=== PATIENT | male | born 1985 | race Caucasian/White ===

== ENCOUNTER 2016-10-28 18:25 | Inpatient (IN) | payer SELFPAY ==
[~2016-10-28] VITALS: Ht 180.3 cm; Wt 60.0 kg
[2016-10-28] MEDS: METRONIDAZOLE PMX 500MG/100ML 100 ML IV SCH (01:00)
[2016-10-28] MEDS ORDERED: FAMOTIDINE 20 MG/2 ML IVP ONE (19:00)
[2016-10-28] MEDS ORDERED: DIPHENHYDRAMINE 50 MG/ML, 1ML IVPush ONE (19:00)
[2016-10-28] MEDS ORDERED: SODIUM CHLORIDE 0.9% 1,000ML IVBOLUS ONE (19:00)
[2016-10-28] MEDS ORDERED: METOCLOPRAMIDE 5 MG/ML, 2ML IVPush ONE (19:00)
[2016-10-28] MEDS ORDERED: SODIUM CHLORIDE FLUSH 10ML SYR IVF ONE (19:00)
[2016-10-28] MEDS ORDERED: FAMOTIDINE 20 MG/2 ML ONE (19:16)
[2016-10-28] MEDS ORDERED: DIPHENHYDRAMINE 50 MG/ML, 1ML ONE (19:16)
[2016-10-28] MEDS ORDERED: METOCLOPRAMIDE 5 MG/ML, 2ML ONE (19:16)
[2016-10-28] MEDS ORDERED: MORPHINE SULFATE 4 MG/ML, 1ML IVPush PRN (19:30)
[2016-10-28 19:40] LABS: ASPARTATE AMINO TRANSFERASE 17 U/L (15-37); BLOOD UREA NITROGEN 18 mg/dL (7-18)
[2016-10-28] MEDS ORDERED: MORPHINE SULFATE 4 MG/ML, 1ML ONE ×2 (19:59→22:08)
[2016-10-28 20:20] LABS: DIFF TOTAL CELLS COUNTED 100 CELL DIFF
[2016-10-28 20:29] LABS: VERIFY COUNTS? YES
[2016-10-28] MEDS ORDERED: ACETAMINOPHEN 325 MG TABLET ONE (20:29)
[2016-10-28] MEDS ORDERED: ACETAMINOPHEN 325 MG TABLET PO ONE (20:30)
[2016-10-28] MEDS ORDERED: morphine SULFATE 10 MG/ML, 1ML IVPush ONE (22:30)
[2016-10-28] MEDS ORDERED: SODIUM CHLORIDE 0.9% 1,000 ML IV ONE (22:30)
[2016-10-28] MEDS ORDERED: HYDROcodone/APAP 5/325 TABLET PO PRN (23:00)
[2016-10-28] MEDS ORDERED: CEFTRIAXONE 1,000 MG in SODIUM CHLORIDE 0.9% 50 ML IV SCH (23:00)
[2016-10-28] MEDS ORDERED: PHARMACY MAY ADJ FOR RENAL FX MC PRN (23:00)
[2016-10-28] MEDS ORDERED: ONDANSETRON ODT 4 MG PO PRN (23:00)
[2016-10-28] MEDS ORDERED: ACETAMINOPHEN 325 MG TABLET PO PRN (23:00)
[2016-10-28 23:03] VITALS: BP 102/65
[2016-10-28] MEDS: SODIUM CHLORIDE 0.9% 1,000 ML IV SCH (23:12)
[2016-10-28] MEDS: ENOXAPARIN 40 MG/0.4 ML SQ SCH (23:35)
[2016-10-29 00:14] VITALS: BP 102/67
[2016-10-29] MEDS: METRONIDAZOLE PMX 500MG/100ML 100 ML IV SCH ×3 (00:57→19:51)
[2016-10-29 03:31] VITALS: BP 105/61
[2016-10-29] MEDS: morphine SULFATE 10 MG/ML, 1ML IVPush PRN ×5 (05:33→23:34)
[2016-10-29] MEDS: ONDANSETRON 2MG/ML, 2ML IVPush PRN ×3 (05:34→23:08)
[2016-10-29] MEDS: SODIUM CHLORIDE 0.9% 1,000 ML IV SCH ×3 (05:36→18:49)
[2016-10-29 05:43] LABS: ASPARTATE AMINO TRANSFERASE 16 U/L (15-37); BLOOD UREA NITROGEN 14 mg/dL (7-18)
[2016-10-29] MEDS: METOCLOPRAMIDE 5 MG/ML, 2ML IVPush PRN ×2 (08:41→19:51)
[2016-10-29 13:55] VITALS: BP 109/68
[2016-10-29] MEDS: LORazepam 2 MG/ML, 1ML IVPush PRN ×2 (16:08→23:56)
[2016-10-29 21:56] VITALS: BP 112/72
[2016-10-29] MEDS: ENOXAPARIN 40 MG/0.4 ML SQ SCH (23:08)
[2016-10-29] MEDS: CEFTRIAXONE PMX 1GM/50ML 50 ML IV SCH (23:10)
[2016-10-30 00:51] VITALS: BP 116/71
[2016-10-30] MEDS: METOCLOPRAMIDE 5 MG/ML, 2ML IVPush PRN ×4 (01:51→21:40)
[2016-10-30] MEDS: morphine SULFATE 10 MG/ML, 1ML IVPush PRN ×4 (03:54→21:40)
[2016-10-30] MEDS: METRONIDAZOLE PMX 500MG/100ML 100 ML IV SCH ×3 (03:54→19:59)
[2016-10-30] MEDS: ONDANSETRON 2MG/ML, 2ML IVPush PRN ×3 (05:10→19:59)
[2016-10-30 06:14] LABS: BLOOD UREA NITROGEN 10 mg/dL (7-18)
[2016-10-30 07:52] VITALS: BP 105/61
[2016-10-30] MEDS ORDERED: POTASSIUM CHLORIDE 40 MEQ in SODIUM CHLORIDE 0.9% 500 ML IV ONE (08:00)
[2016-10-30] MEDS ORDERED: MORPHINE SULFATE 4 MG/ML, 1ML ONE (08:31)
[2016-10-30] MEDS: LORazepam 2 MG/ML, 1ML IVPush PRN (11:57)
[2016-10-30 12:49] VITALS: BP 94/55
[2016-10-30] MEDS: FAMOTIDINE 20 MG/2 ML IVPush SCH ×2 (17:27→19:59)
[2016-10-30] MEDS: SODIUM CHLORIDE 0.9% 1,000 ML IV SCH (17:33)
[2016-10-30 20:25] VITALS: BP 138/78
[2016-10-30] MEDS: CEFTRIAXONE PMX 1GM/50ML 50 ML IV SCH (23:06)
[2016-10-31 00:55] VITALS: BP 121/86
[2016-10-31] MEDS: ONDANSETRON 2MG/ML, 2ML IVPush PRN ×3 (01:36→16:41)
[2016-10-31] MEDS: LORazepam 2 MG/ML, 1ML IVPush PRN ×3 (01:36→16:41)
[2016-10-31] MEDS: METOCLOPRAMIDE 5 MG/ML, 2ML IVPush PRN ×2 (03:53→18:27)
[2016-10-31] MEDS: METRONIDAZOLE PMX 500MG/100ML 100 ML IV SCH ×3 (03:53→22:35)
[2016-10-31] MEDS: SODIUM CHLORIDE 0.9% 1,000 ML IV SCH ×2 (05:10→13:37)
[2016-10-31] MEDS: morphine SULFATE 10 MG/ML, 1ML IVPush PRN ×2 (05:16→18:27)
[2016-10-31 05:59] LABS: BLOOD UREA NITROGEN 8 mg/dL (7-18)
[2016-10-31] MEDS: FAMOTIDINE 20 MG/2 ML IVPush SCH (08:04)
[2016-10-31] MEDS: ENOXAPARIN 40 MG/0.4 ML SQ SCH (08:04)
[2016-10-31 08:06] VITALS: BP 128/76
[2016-10-31] MEDS ORDERED: MAGNESIUM SULFATE PMX 2GM/50ML 50 ML IV ONE (08:30)
[2016-10-31] MEDS ORDERED: POTASSIUM PHOSPHATE 22 MEQ in SODIUM CHLORIDE 0.9% 500 ML IV ONE (08:30)
[2016-10-31] MEDS ORDERED: POTASSIUM CHLORIDE 40 MEQ in SODIUM CHLORIDE 0.9% 500 ML IV ONE (11:30)
[2016-10-31] MEDS: PROMETHAZINE 25 MG/ML, 1ML IM PRN (11:32)
[2016-10-31 14:37] VITALS: BP 127/80
[2016-10-31 20:54] VITALS: BP 104/62
[2016-11-01] MEDS: morphine SULFATE 10 MG/ML, 1ML IVPush PRN ×5 (00:15→19:54)
[2016-11-01] MEDS: PROMETHAZINE 25 MG/ML, 1ML IM PRN ×4 (00:16→21:02)
[2016-11-01] MEDS: CEFTRIAXONE PMX 1GM/50ML 50 ML IV SCH (01:21)
[2016-11-01] MEDS: SODIUM CHLORIDE 0.9% 1,000 ML IV SCH ×3 (01:23→15:49)
[2016-11-01] MEDS: FAMOTIDINE 20 MG/2 ML IVPush SCH ×3 (01:25→21:02)
[2016-11-01 03:07] VITALS: BP 125/85
[2016-11-01 05:52] LABS: BLOOD UREA NITROGEN 7 mg/dL (7-18)
[2016-11-01 06:57] VITALS: BP 105/70
[2016-11-01] MEDS: METRONIDAZOLE PMX 500MG/100ML 100 ML IV SCH ×2 (07:34→15:48)
[2016-11-01] MEDS ORDERED: POTASSIUM CHLORIDE 40 MEQ in SODIUM CHLORIDE 0.9% 500 ML IV ONE (08:30)
[2016-11-01] MEDS: ENOXAPARIN 40 MG/0.4 ML SQ SCH (08:59)
[2016-11-01] MEDS: LORazepam 2 MG/ML, 1ML IVPush PRN ×2 (11:23→17:39)
[2016-11-01 13:33] VITALS: BP 120/82
[2016-11-01] MEDS ORDERED: ZOLPIDEM 5MG TABLET PO PRN (15:30)
[2016-11-01] MEDS: LACTOBACILLUS CHEW TABLET PO SCH ×2 (17:34→21:02)
[2016-11-01 19:20] VITALS: BP 124/82
[2016-11-02] MEDS: morphine SULFATE 10 MG/ML, 1ML IVPush PRN ×5 (00:31→20:10)
[2016-11-02] MEDS: CEFTRIAXONE PMX 1GM/50ML 50 ML IV SCH (00:34)
[2016-11-02] MEDS: SODIUM CHLORIDE 0.9% 1,000 ML IV SCH ×2 (00:34→09:09)
[2016-11-02 01:17] VITALS: BP 123/82
[2016-11-02] MEDS: METRONIDAZOLE PMX 500MG/100ML 100 ML IV SCH ×2 (01:30→09:08)
[2016-11-02] MEDS: LORazepam 2 MG/ML, 1ML IVPush PRN ×2 (02:26→17:01)
[2016-11-02] MEDS: PROMETHAZINE 25 MG/ML, 1ML IM PRN ×4 (02:27→20:13)
[2016-11-02 04:51] LABS: BLOOD UREA NITROGEN 5 mg/dL (7-18)
[2016-11-02] MEDS: NICOTINE 7 MG/24 HR PATCH.TD24 TD SCH (05:54)
[2016-11-02 07:27] VITALS: BP 132/80
[2016-11-02] MEDS: FAMOTIDINE 20 MG/2 ML IVPush SCH ×2 (09:07→20:59)
[2016-11-02] MEDS: LACTOBACILLUS CHEW TABLET PO SCH ×3 (09:07→20:59)
[2016-11-02] MEDS: POTASSIUM CHLORIDE 20 MEQ TAB.ER.PRT PO SCH ×2 (09:07→16:56)
[2016-11-02] MEDS: ENOXAPARIN 40 MG/0.4 ML SQ SCH (09:08)
[2016-11-02] MEDS ORDERED: LORazepam 1MG TABLET PO PRN (12:30)
[2016-11-02 13:26] VITALS: BP 112/74
[2016-11-02] MEDS: metroNIDAZOLE 500 MG TABLET PO SCH ×2 (13:45→21:42)
[2016-11-02 19:08] VITALS: BP 127/83
[2016-11-02] MEDS: CEFDINIR 300 MG CAPSULE PO SCH (20:58)
[2016-11-03 00:33] VITALS: BP 116/76
[2016-11-03] MEDS: morphine SULFATE 10 MG/ML, 1ML IVPush PRN (03:31)
[2016-11-03] MEDS: metroNIDAZOLE 500 MG TABLET PO SCH ×2 (05:02→13:14)
[2016-11-03] MEDS: NICOTINE 7 MG/24 HR PATCH.TD24 TD SCH (05:04)
[2016-11-03 06:07] LABS: BLOOD UREA NITROGEN 5 mg/dL (7-18)
[2016-11-03] MEDS: ENOXAPARIN 40 MG/0.4 ML SQ SCH (09:00)
[2016-11-03] MEDS: FAMOTIDINE 20 MG/2 ML IVPush SCH (09:16)
[2016-11-03] MEDS: CEFDINIR 300 MG CAPSULE PO SCH (09:16)
[2016-11-03] MEDS: LACTOBACILLUS CHEW TABLET PO SCH (09:17)
[2016-11-03] MEDS: POTASSIUM CHLORIDE 20 MEQ TAB.ER.PRT PO SCH (09:17)
[2016-11-03] MEDS ORDERED: CEFD300C37 PO (09:28)
[2016-11-03] MEDS ORDERED: METR500T PO (09:28)
[2016-11-03] MEDS ORDERED: ACID1TAB7 PO (09:28)
[2016-11-03] MEDS ORDERED: ONDA4TAB13 PO (09:28)
[2016-11-03 09:40] VITALS: BP 109/73
[2016-11-04] MEDS ORDERED: LORA-445 PO (23:20)
== END 2016-11-03 14:50 | disposition home or self-care (01) | DRG 391 ==
LOC: ED 21:30 → SUATTDRO 22:30 → EDIP 22:35 → 3NE 23:00 → DCLOUNGE 11-03 14:33
PROVIDERS: ADMIT Internal Medicine; ATTEND Internal Medicine
DX: K52.9 Noninfective gastroenteritis and colitis, unspecified (principal); N17.0 Acute kidney failure with tubular necrosis; E87.2 Acidosis; F41.9 Anxiety disorder, unspecified; G89.29 Other chronic pain; D64.9 Anemia, unspecified; E83.42 Hypomagnesemia; E87.6 Hypokalemia; E83.39 Other disorders of phosphorus metabolism; G43.A0 Cyclical vomiting, in migraine, not intractable; E86.0 Dehydration; E86.1 Hypovolemia; G47.00 Insomnia, unspecified; F12.90 Cannabis use, unspecified, uncomplicated
CPT/HCPCS: 36415; 74176; 80048; 80053; 81001; 83605; 83690; 83735; 84100; 85025; 87040; 87046; 87324; 89055; 96361; 96374; 96375; 96376; J0696; J1650; J2405; J2550; J3480; J1200; J2060; J2270; J2765; J3475; J7030; J7040; S0028

== ENCOUNTER 2016-11-04 20:37 | Inpatient (IN) | payer MEDICAID ==
[~2016-11-04] VITALS: Ht 180.3 cm; Wt 55.9 kg
[~2016-11-04 20:37] MED LIST: ACID1TAB7 PO; CEFD300C37 PO; METR500T PO; ONDA4TAB13 PO
[2016-11-04] MEDS ORDERED: MORPHINE SULFATE 4 MG/ML, 1ML ONE (20:52)
[2016-11-04] MEDS ORDERED: ONDANSETRON 2MG/ML, 2ML ONE (20:52)
[2016-11-04] MEDS ORDERED: FAMOTIDINE 20 MG/2 ML ONE (20:54)
[2016-11-04] MEDS ORDERED: ONDANSETRON 2MG/ML, 2ML IVPush ONE (21:00)
[2016-11-04] MEDS ORDERED: MORPHINE SULFATE 4 MG/ML, 1ML IVPush PRN (21:00)
[2016-11-04] MEDS ORDERED: SODIUM CHLORIDE 0.9% 1,000ML IVBOLUS ONE ×2 (21:00→22:00)
[2016-11-04] MEDS ORDERED: SODIUM CHLORIDE FLUSH 10ML SYR IVF ONE (21:00)
[2016-11-04] MEDS ORDERED: FAMOTIDINE 20 MG/2 ML IVP ONE (21:00)
[2016-11-04 21:30] LABS: ASPARTATE AMINO TRANSFERASE 56 U/L (15-37); BLOOD UREA NITROGEN 12 mg/dL (7-18)
[2016-11-04] MEDS ORDERED: ZIPRASIDONE 20 MG INJ IM ONE ×2 (21:43→22:00)
[2016-11-04] MEDS ORDERED: PROMETHAZINE 25 MG/ML, 1ML IM ONE (22:00)
[2016-11-04] MEDS ORDERED: PROMETHAZINE 25 MG/ML, 1ML ONE (22:15)
[2016-11-04] MEDS ORDERED: LORA-445 PO (23:20)
[2016-11-05] MEDS ORDERED: SODIUM CHLORIDE 0.9% 1,000 ML IV ONE (00:07)
[2016-11-05] MEDS ORDERED: MORPHINE SULFATE 4 MG/ML, 1ML IVPush PRN (00:30)
[2016-11-05] MEDS ORDERED: ONDANSETRON 2MG/ML, 2ML IVPush PRN (00:30)
[2016-11-05] MEDS ORDERED: ONDANSETRON ODT 4 MG PO PRN (00:30)
[2016-11-05] MEDS: SODIUM CHLORIDE 0.9% 1,000 ML IV SCH ×3 (01:02→16:09)
[2016-11-05 01:06] VITALS: BP 132/87
[2016-11-05] MEDS: metroNIDAZOLE 500 MG TABLET PO SCH ×3 (01:14→16:10)
[2016-11-05] MEDS: ENOXAPARIN 40 MG/0.4 ML SQ SCH (01:14)
[2016-11-05] MEDS: PROMETHAZINE 25 MG/ML, 1ML IM PRN ×5 (01:15→23:59)
[2016-11-05 01:24] VITALS: BP 132/87
[2016-11-05] MEDS: LORazepam 2 MG/ML, 1ML IVPush PRN ×4 (04:13→19:20)
[2016-11-05 04:51] VITALS: BP 133/73
[2016-11-05] MEDS: PANTOPRAZOLE 40 MG IV IVPush SCH (07:27)
[2016-11-05 07:41] VITALS: BP 103/56
[2016-11-05] MEDS: ONDANSETRON 2MG/ML, 2ML IVPush PRN ×2 (08:18→20:45)
[2016-11-05] MEDS: LACTOBACILLUS CHEW TABLET PO SCH ×3 (09:54→21:28)
[2016-11-05] MEDS: CEFDINIR 300 MG CAPSULE PO SCH ×2 (09:54→21:00)
[2016-11-05 14:38] VITALS: BP 129/81
[2016-11-05 18:42] VITALS: BP 108/68
[2016-11-05] MEDS ORDERED: morphine SULFATE 10 MG/ML, 1ML IVPush PRN (21:30)
[2016-11-06] MEDS: SODIUM CHLORIDE 0.9% 1,000 ML IV SCH ×3 (00:27→20:49)
[2016-11-06] MEDS: morphine SULFATE 10 MG/ML, 1ML IVPush PRN ×3 (00:27→16:03)
[2016-11-06] MEDS: ENOXAPARIN 40 MG/0.4 ML SQ SCH (00:30)
[2016-11-06 01:51] VITALS: BP 181/71
[2016-11-06] MEDS: LORazepam 2 MG/ML, 1ML IVPush PRN ×3 (02:20→22:47)
[2016-11-06 05:35] LABS: BLOOD UREA NITROGEN 6 mg/dL (7-18)
[2016-11-06] MEDS: PANTOPRAZOLE 40 MG IV IVPush SCH (08:25)
[2016-11-06] MEDS: LACTOBACILLUS CHEW TABLET PO SCH ×3 (08:25→22:46)
[2016-11-06 08:31] VITALS: BP 181/71
[2016-11-06 08:52] LABS: DIFF TOTAL CELLS COUNTED 100 CELL DIFF
[2016-11-06 08:54] LABS: VERIFY COUNTS? YES
[2016-11-06] MEDS ORDERED: POTASSIUM CHLORIDE 40 MEQ in SODIUM CHLORIDE 0.9% 500 ML IV ONE (12:30)
[2016-11-06 14:30] VITALS: BP 140/92
[2016-11-06] MEDS ORDERED: MORPHINE SULFATE 4 MG/ML, 1ML ONE (15:58)
[2016-11-06] MEDS: ONDANSETRON 2MG/ML, 2ML IVPush PRN (16:03)
[2016-11-06] MEDS: PROMETHAZINE 25 MG/ML, 1ML IM PRN ×2 (18:15→22:46)
[2016-11-06] MEDS: METOPROLOL TARTRATE 25 MG TABLET PO SCH (18:17)
[2016-11-06 18:58] VITALS: BP 112/75
[2016-11-06] MEDS: MORPHINE SULFATE 4 MG/ML, 1ML IVPush PRN (20:49)
[2016-11-07] MEDS: ENOXAPARIN 40 MG/0.4 ML SQ SCH ×2 (00:30→23:55)
[2016-11-07] MEDS: MORPHINE SULFATE 4 MG/ML, 1ML IVPush PRN ×5 (00:54→23:11)
[2016-11-07 02:44] VITALS: BP 108/71
[2016-11-07] MEDS: SODIUM CHLORIDE 0.9% 1,000 ML IV SCH ×3 (04:00→23:10)
[2016-11-07 05:44] LABS: BLOOD UREA NITROGEN 6 mg/dL (7-18)
[2016-11-07] MEDS: METOPROLOL TARTRATE 25 MG TABLET PO SCH ×2 (06:25→18:26)
[2016-11-07 07:59] VITALS: BP 104/62
[2016-11-07] MEDS: LACTOBACILLUS CHEW TABLET PO SCH ×3 (08:29→23:10)
[2016-11-07] MEDS: ONDANSETRON 2MG/ML, 2ML IVPush PRN (08:29)
[2016-11-07] MEDS: PANTOPRAZOLE 40 MG IV IVPush SCH (08:29)
[2016-11-07] MEDS: LORazepam 2 MG/ML, 1ML IVPush PRN (10:06)
[2016-11-07] MEDS: METOCLOPRAMIDE 10MG TABLET PO PRN ×2 (14:04→23:11)
[2016-11-07 16:20] VITALS: BP 106/61
[2016-11-07 18:28] VITALS: BP 118/76
[2016-11-07 19:59] VITALS: BP 112/70
[2016-11-08 01:38] VITALS: BP 119/66
[2016-11-08] MEDS: MORPHINE SULFATE 4 MG/ML, 1ML IVPush PRN ×3 (02:26→10:33)
[2016-11-08] MEDS: LORazepam 2 MG/ML, 1ML IVPush PRN ×3 (02:26→13:07)
[2016-11-08] MEDS: METOPROLOL TARTRATE 25 MG TABLET PO SCH (05:41)
[2016-11-08 07:29] VITALS: BP 116/76
[2016-11-08] MEDS: SODIUM CHLORIDE 0.9% 1,000 ML IV SCH (08:35)
[2016-11-08] MEDS: PANTOPRAZOLE 40 MG IV IVPush SCH (08:35)
[2016-11-08] MEDS: LACTOBACILLUS CHEW TABLET PO SCH (08:35)
[2016-11-08] MEDS: METOCLOPRAMIDE 10MG TABLET PO PRN (08:42)
[2016-11-08] MEDS ORDERED: PROM25SU34 RC (12:38)
[2016-11-08] MEDS ORDERED: METO10TA2 PO (12:38)
[2016-11-08] MEDS ORDERED: PANT40TA5 PO (12:38)
[2016-11-08] MEDS ORDERED: METO25TA35 PO (12:38)
[2016-11-08 13:16] VITALS: BP 111/71
== END 2016-11-08 15:15 | disposition home or self-care (01) | DRG 103 ==
LOC: ED 21:06 → EDIP 11-05 00:14 → 4NOR 11-05 00:35 → 3NE 11-05 23:46
PROVIDERS: ADMIT Internal Medicine; ATTEND Internal Medicine
DX: G43.A0 Cyclical vomiting, in migraine, not intractable (principal); F33.9 Major depressive disorder, recurrent, unspecified; E87.2 Acidosis; A09 Infectious gastroenteritis and colitis, unspecified; E86.0 Dehydration; F12.90 Cannabis use, unspecified, uncomplicated; G89.29 Other chronic pain; F41.9 Anxiety disorder, unspecified; Z88.2 Allergy status to sulfonamides; Z81.8 Family history of other mental and behavioral disorders; Z83.3 Family history of diabetes mellitus
CPT/HCPCS: 36415; 80048; 80053; 81003; 83605; 83690; 84145; 85025; 87040; 96361; 96372; 96374; 96375; J1650; J2405; J2550; J3480; J3486; C9113; J2060; J2270; J7030; J7040; S0028